=== PATIENT | male | born 1985 | race American Indian/Alaskan Native ===

== ENCOUNTER 2016-07-15 17:58 | Emergency (ER) | payer SELFPAY ==
[2016-07-15 18:26] VITALS: BP 112/81
--- NOTE | 2016-07-15 22:34 | Emergency Department Report ---
- General Chief Complaint: Upper Respiratory Infection Stated Complaint: FOREIGN OBJECT LODGE IN RT SIDE OF NASAL PASSAGE/ Time Seen by Provider: 07/15/16 22:15 Source: patient Mode of arrival: Ambulatory Limitations: No Limitations - History of Present Illness Initial Comments: 31-year-old male past medical history smoker presents with complaint of 4 days of sinus congestion, nasal discharge clear, greenish, anterior headache significant pressure in his frontal sinuses maxillary and forehead/frontal. Denies any fever or chills, complains of dry cough. Denies any chest pain and chills nausea vomiting. MD Complaint: rhinorrhea, nasal congestion, sinus pain Severity: moderate Severity scale (0 -10): 7 Quality: aching Consistency: constant Improves With: NSAID, OTC cold medicine Associated Symptoms: headache, rhinorrhea, nasal congestion - Related Data Previous Rx's Medication Instructions Recorded Last Taken Type Amoxicillin/K Clav Tab [Augmentin 1 tab PO Q12HR #14 tab 07/15/16 Unknown Rx 875 mg] Azelastine 0.1% (Nf) [Astelin (Nf)] 137 mcg NS QDAY #1 bottle 07/15/16 Unknown Rx Fluticasone [Flonase] 1 spray NS QDAY #1 bottle 07/15/16 Unknown Rx Naproxen [Naprosyn TAB] 500 mg PO BID PRN #14 tablet 07/15/16 Unknown Rx Allergies Allergy/AdvReac Type Severity Reaction Status Date / Time No Known Allergies Allergy Unverified 07/15/16 18:17 ED Review of Systems ROS: Stated complaint: FOREIGN OBJECT LODGE IN RT SIDE OF NASAL PASSAGE/ Other details as noted in HPI Constitutional: denies: chills, fever Eyes: denies: eye pain, eye discharge, vision change ENT: congestion. denies: ear pain, throat pain Respiratory: denies: cough, shortness of breath, wheezing Cardiovascular: denies: chest pain, palpitations Endocrine: no symptoms reported Gastrointestinal: denies: abdominal pain, nausea, diarrhea Genitourinary: denies: urgency, dysuria Musculoskeletal: denies: back pain, joint swelling, arthralgia Skin: denies: rash, lesions Neurological: denies: headache, weakness, paresthesias Psychiatric: denies: anxiety, depression Hematological/Lymphatic: denies: easy bleeding, easy bruising ED Past Medical Hx - Medications Home Medications: Home Medications Medication Instructions Recorded Confirmed Last Taken Type Amoxicillin/K Clav Tab [Augmentin 1 tab PO Q12HR #14 tab 07/15/16 Unknown Rx 875 mg] Azelastine 0.1% (Nf) [Astelin (Nf)] 137 mcg NS QDAY #1 bottle 07/15/16 Unknown Rx Fluticasone [Flonase] 1 spray NS QDAY #1 bottle 07/15/16 Unknown Rx Naproxen [Naprosyn TAB] 500 mg PO BID PRN #14 tablet 07/15/16 Unknown Rx ED Physical Exam - General Limitations: No Limitations General appearance: alert, in no apparent distress - Head Head exam: Present: atraumatic, normocephalic - Eye Eye exam: Present: normal appearance - ENT ENT exam: Present: mucous membranes moist, other (frontal and maxillary sinus tenderness to palpation/percussion, nasal turbinates injected and beefy red on clinical exam, no visible septal wall abscess.) - Neck Neck exam: Present: normal inspection - Respiratory Respiratory exam: Present: normal lung sounds bilaterally. Absent: respiratory distress - Cardiovascular Cardiovascular Exam: Present: regular rate, normal rhythm. Absent: systolic murmur, diastolic murmur, rubs, gallop - GI/Abdominal GI/Abdominal exam: Present: soft, normal bowel sounds - Rectal Rectal exam: Present: deferred - Extremities Exam Extremities exam: Present: normal inspection - Back Exam Back exam: Present: normal inspection - Neurological Exam Neurological exam: Present: alert, oriented X3 - Psychiatric Psychiatric exam: Present: normal affect, normal mood - Skin Skin exam: Present: warm, dry, intact, normal color. Absent: rash ED Course Vital Signs 07/15/16 18:18 Temperature 98.1 F Pulse Rate 91 H Respiratory 14 Rate Blood Pressure 112/81 O2 Sat by Pulse 99 Oximetry ED Medical Decision Making - Medical Decision Making A/P: Acute sinusitis 1-Augmentin 875 twice a day 7 days 2- Flonase,azelastin nasal spray. Naproxen when necessary. 3-I advised patient to return to the ED for any severe fever chills and inability to breathe through nostrils, any significant purulent drainage or bleeding from nose. 4-follow-up with primary care Critical care attestation.: If time is entered above; I have spent that time in minutes in the direct care of this critically ill patient, excluding procedure time. ED Disposition Clinical Impression: Acute sinusitis Qualifiers: Sinusitis location: frontal Recurrence: non-recurrent Qualified Code(s): J01.10 - Acute frontal sinusitis, unspecified Disposition: DISCHARGED TO HOME OR SELFCARE Is pt being admited?: No Does the pt Need Aspirin: No Condition: Stable Instructions: Sinusitis (ED), Acute Bacterial Rhinosinusitis (ED) Prescriptions: Azelastine 0.1% (Nf) [Astelin (Nf)] 137 mcg NS QDAY #1 bottle Amoxicillin/K Clav Tab [Augmentin 875 mg] 1 tab PO Q12HR #14 tab Fluticasone [Flonase] 1 spray NS QDAY #1 bottle Naproxen [Naprosyn TAB] 500 mg PO BID PRN #14 tablet PRN Reason: Pain Referrals: PRIMARY CARE,MD [Primary Care Provider] - 3-5 Days [facility] [Outside] - 3-5 Days Forms: Work/School Release Form(ED) Time of Disposition: 22:35
== END 2016-07-15 22:37 | disposition home or self-care (01) ==
LOC: ED 17:58
DX: J01.10 Acute frontal sinusitis, unspecified (principal)
CPT/HCPCS: 99282